=== PATIENT | male | born 1950 | race Caucasian/White ===

== ENCOUNTER → 2018-08-12 | Emergency (ER) | payer MEDICARE, OTHER ==
[~2018-08-12] VITALS: Ht 172.7 cm; Wt 81.6 kg
[~2018-08-12] MED LIST: CLARITIN10 MG PO; DOXEPIN10 MG PO; MEDROL DOSEPAK4 MG PO; METFORMIN HYDR750 MG PO; METFORMIN750 M1 PO
[2018-08-12 22:08] LABS: BASO # 0.1 10*3/uL (0.0-0.1); BASO % 0.4 % (0.0-1.0); EOS % 0.2 % (1.0-4.0); HEMATOCRIT 44.2 % (42.0-52.0); HEMOGLOBIN 14.5 g/dl (14.0-18.0); LYMPH # 0.7 10*3/uL (1.3-4.4); LYMPH % 5.8 % (27.0-41.0); MEAN CELL VOLUME 91.7 fl (80.0-94.0); MEAN CORPUSCULAR HGB 30.1 pg (27.0-31.0); MEAN CORPUSCULAR HGB CONC 32.8 g/dl (33.0-37.0); MEAN PLATELET VOLUME 10.7 fl (9.6-12.3); MONO # 0.6 10*3/uL (0.1-1.0); MONO % 4.9 % (3.0-9.0); PLATELET COUNT AUTOMATED 191 10*3/uL (130-400); RED BLOOD COUNT 4.82 10*6/uL (4.50-5.90); RED CELL DISTRI WIDTH 13.3 % (0-14.5); WHITE BLOOD COUNT 12.5 10*3/uL (4.8-10.8)
[2018-08-12 22:33] LABS: CHLORIDE 107 mmol/L (98-107); CREATININE 0.91 mg/dL (0.70-1.30); SGOT/AST 33 IU/L (3-35); SGPT/ALT 49 U/L (12-78); SODIUM 140 mmol/L (136-145)
[2018-08-12 22:35] LABS: ALBUMIN 4.3 gm/dl (3.1-4.5); ALKALINE PHOSPHATASE 69 U/L (45-117); BUN 19 mg/dl (7-24); TOTAL PROTEIN 7.7 gm/dL (6.4-8.2)
== END ==
LOC: ED 18:29
PROVIDERS: Emergency Medicine
DX: S27.0XXA Traumatic pneumothorax, initial encounter (principal); S22.42XA Multiple fractures of ribs, left side, initial encounter for closed fracture; M25.512 Pain in left shoulder; Z88.8 Allergy status to other drugs, medicaments and biological substances; Z79.899 Other long term (current) drug therapy; Z79.84 Long term (current) use of oral hypoglycemic drugs; Z98.890 Other specified postprocedural states; W17.89XA Other fall from one level to another, initial encounter; Y93.89 Activity, other specified; Y92.89 Other specified places as the place of occurrence of the external cause; Y99.8 Other external cause status

== ENCOUNTER → 2018-12-26 | Outpatient (CLI) | payer MEDICARE, OTHER ==
[~2018-12-26] MED LIST changes: +AVPAK METFORMI500 M1 PO; +DOXYCYCLINE100 M3 PO; +ELIQUIS5 M1 PO; +EPIPEN 2-P0.3 MG/0.3 IJ; +JANUVIA50 MG PO; +LISINOPRIL2.5 MG PO; +METOPROLOL SUCC25 M2 PO; +SIMVASTATIN20 MG PO
== END | disposition home or self-care (01) ==
LOC: US 12-15 11:00
DX: E13.9 Other specified diabetes mellitus without complications (principal); I10 Essential (primary) hypertension; R60.0 Localized edema

== ENCOUNTER 2018-12-27 21:48 | Emergency (ER) | payer MEDICARE, OTHER ==
[~2018-12-27] VITALS: Ht 172.7 cm; Wt 89.4 kg
[~2018-12-27 21:48] MED LIST changes: -AVPAK METFORMI500 M1 PO; -DOXYCYCLINE100 M3 PO; -ELIQUIS5 M1 PO; -EPIPEN 2-P0.3 MG/0.3 IJ; -JANUVIA50 MG PO; -LISINOPRIL2.5 MG PO; -METOPROLOL SUCC25 M2 PO; -SIMVASTATIN20 MG PO
[2018-12-27] MEDS ORDERED: LISINOPRIL2.5 MG PO (21:52)
[2018-12-27] MEDS ORDERED: SIMVASTATIN20 MG PO (21:52)
[2018-12-27] MEDS ORDERED: METOPROLOL SUCC25 M2 PO (21:52)
[2018-12-27] MEDS ORDERED: JANUVIA50 MG PO (21:53)
[2018-12-27] MEDS ORDERED: AVPAK METFORMI500 M1 PO (21:54)
[2018-12-27] MEDS ORDERED: ELIQUIS5 M1 PO (21:54)
[2018-12-27] MEDS ORDERED: EPIPEN 2-P0.3 MG/0.3 IJ (21:55)
[2018-12-27] MEDS ORDERED: DOXYCYCLINE100 M3 PO (23:08)
== END 2018-12-27 23:35 | disposition home or self-care (01) ==
LOC: ED 21:48
DX: S40.861A Insect bite (nonvenomous) of right upper arm, initial encounter (principal); Z88.6 Allergy status to analgesic agent; Z79.899 Other long term (current) drug therapy; W57.XXXA Bitten or stung by nonvenomous insect and other nonvenomous arthropods, initial encounter; Y93.89 Activity, other specified; Y92.89 Other specified places as the place of occurrence of the external cause; Y99.8 Other external cause status

== ENCOUNTER → 2020-03-09 | Outpatient (CLI) | payer MEDICARE, OTHER ==
[~2020-03-09] MED LIST changes: +AVPAK METFORMI500 M1 PO; +DOXYCYCLINE100 M3 PO; +ELIQUIS5 M1 PO; +EPIPEN 2-P0.3 MG/0.3 IJ; +JANUVIA50 MG PO; +LISINOPRIL2.5 MG PO; +METOPROLOL SUCC25 M2 PO; +SIMVASTATIN20 MG PO
== END | disposition home or self-care (01) ==
LOC: COVID19 08:29
DX: U07.1 COVID-19 (principal); R69 Illness, unspecified

== ENCOUNTER 2021-11-05 17:35 | Emergency (ER) | payer MEDICARE, OTHER | END 2021-11-05 18:23 | LOC: ED 17:41 | DX: I46.9 Cardiac arrest, cause unspecified (principal); Z79.899 Other long term (current) drug therapy; Z88.8 Allergy status to other drugs, medicaments and biological substances ==